=== PATIENT | female | born 1980 | race Caucasian/White ===

== ENCOUNTER 2018-06-03 19:43 | Emergency (ER) | payer BC ==
[2018-06-03] MEDS ORDERED: Tetracaine 0.5% OPTH.SOL 4 ML* 1 DROP BTL SCH (20:00)
[2018-06-03] MEDS ORDERED: Fluorescein Sod TOPICAL 0.6* 0.6 MG TEST OPHTHALMIC ONE (20:00)
[2018-06-03 20:03] VITALS: BP 121/79
--- NOTE | 2018-06-03 20:07 | UC ---
Eye Complaint HPI - HPI Summary HPI Summary: This patient is a 37 year old F presenting to [facility] with a chief complaint of constant right eye pain for the past 24 hours. Pain described as "a needle". She states she was moving branches/brush yesterday at onset of pain. She states pain is at the center of the eye. Pain is 510 in severity upon triage. Denies redness or visual changes. - History of Current Complaint Stated Complaint: EYE PAIN Time Seen by Provider: 06/03/18 19:55 Hx Obtained From: Patient Hx Last Menstrual Period: 1 WEEK AGO Onset/Duration: Lasting Days Timing: Constant Severity Initially: Moderate Severity Currently: Moderate Pain Intensity: 5 Pain Scale Used: 0-10 Numeric Location of Injury: Conjunctiva, Other Character: Sharp Associated Signs And Symptoms: Positive: Negative - Allergies/Home Medications Allergies/Adverse Reactions: Allergies Allergy/AdvReac Type Severity Reaction Status Date / Time SEASONAL Allergy Congestion Uncoded 11/19/16 20:14 Home Medications: Home Medications Fluticasone Propionate [Flonase Allergy Relief] 06/03/18 [History] PMH/Surg Hx/FS Hx/Imm Hx Previously Healthy: Yes - Surgical History Surgical History: Yes Surgery Procedure, Year, and Place: laparoscopy, lapendectomy, lumpectomy left breast, 2x D&C - Family History Known Family History: Positive: Hypertension - Social History Alcohol Use: Occasionally Substance Use Type: None Smoking Status (MU): Former Smoker Type: Cigarettes Length of Time of Smoking/Using Tobacco: quit 10 years ago Review of Systems Constitutional: Negative ENT: Other - eye pain without redness All Other Systems Reviewed And Are Negative: Yes Physical Exam - Summary Physical Exam Summary: General: well-appearing, no pain distress Skin: warm, color reflects adequate perfusion, dry Head: normal Eyes: EOMI, MÓNICA Florescence uptake at 7 Oclock on the iris with 2mm linear uptake ENT: normal Neck: supple, nontender Respiratory: CTA, breath sounds present Cardiovascular: RRR Abdomen: soft, nontender Bowel: present Musculoskeletal: normal, strength/ROM intact Neurological: sensory/motor intact, A&O x3 Psychological: affect/mood appropriate Triage Information Reviewed: Yes Vital Signs Reviewed: Yes Eye Complaint Course/Dx - Course Course Of Treatment: RX TOBRAMYCIN DROPS. F/U WITH OPHTHALMOLOGY IF NOT IMPROVED; RECHECK SOONER IF WORSE. - Differential Dx/Diagnosis Provider Diagnoses: RIGHT EYE CORNEAL ABRASION. RIGHT EYE PAIN Discharge - Sign-Out/Discharge Documenting (check all that apply): Patient Departure - Discharge Plan Condition: Stable Disposition: HOME Patient Education Materials: Corneal Abrasion (ED) Referrals: Cynthia Ramsey MD [Primary Care Provider] - Additional Instructions: FOLLOW UP WITH YOUR LAMINATION OPERATOR. IF NOT COMPLETELY IMPROVED. GET RECHECKED FOR ANY WORSENING OF YOUR CONDITION OR QUESTIONS OR CONCERNS. - Billing Disposition and Condition Condition: STABLE Disposition: Home
[2018-06-03] MEDS ORDERED: Tetracaine 0.5% OPTH.SOL 4 ML* 1 DROP BTL ONE (20:11)
[2018-06-03] MEDS ORDERED: Tobramycin 0.3% OPHTH.SOL* 5 ML BOT (regular eye drops) RIGHT EYE ONE (20:26)
== END 2018-06-03 20:47 | disposition home or self-care (01) ==
LOC: UCEAST 19:43
DX: S05.01XA Injury of conjunctiva and corneal abrasion without foreign body, right eye, initial encounter (principal); X58.XXXA Exposure to other specified factors, initial encounter; Y93.H9 Activity, other involving exterior property and land maintenance, building and construction; Y92.9 Unspecified place or not applicable; H57.11 Ocular pain, right eye; Z82.49 Family history of ischemic heart disease and other diseases of the circulatory system; Z87.891 Personal history of nicotine dependence
CPT/HCPCS: 99212; A9270-GY; G0463

== ENCOUNTER 2019-05-19 09:49 | Emergency (ER) | payer BC ==
[2019-05-19] MEDS ORDERED: diPHENhydraMINE IV* 50 MG/ML 1 ml VIAL (BENADRYL) IV ONE (10:33)
[2019-05-19] MEDS ORDERED: Metoclopramide IV* 5 MG/ML 2 ML VIAL IV PRN (10:33)
[2019-05-19] MEDS ORDERED: Ketorolac INJ* 30 MG/ML 1 ML VIAL IV PUSH ONE (10:33)
--- NOTE | 2019-05-19 10:34 | UC ---
Headache HPI - HPI Summary HPI Summary: is a 38-year-old female who presents to the urgent care with chief complaint of having a severe migraine headache. The patient has history migraine headaches. She reports that this headache is similar to her usual migraine headaches. She denies any fever, she denies any neck pain, positive photophobia and fatigue and weakness. She also reports that she's been having a upper respiratory tract infection symptoms for the last couple days. She reports that she has been well controlled with her migraine headaches for the last year and a half and in the last 3 weeks she has had 3 migraine headaches. She denies any chest patients develop palpitations. Patient has no other complaints. - History Of Current Complaint Chief Complaint: UCHeadache Stated Complaint: HEADACHE Time Seen by Provider: 05/19/19 10:20 Hx Obtained From: Patient Hx Last Menstrual Period: 1 WEEK AGO Onset/Duration: Gradual Onset Initially Headache Was: Moderate Currently Pain Is: Severe Pain Intensity: 8 - Allergies/Home Medications Allergies/Adverse Reactions: Allergies Allergy/AdvReac Type Severity Reaction Status Date / Time SEASONAL Allergy Congestion Uncoded 05/19/19 10:03 Home Medications: Home Medications Ibuprofen 800 mg PO 05/19/19 [History] PMH/Surg Hx/FS Hx/Imm Hx Previously Healthy: Yes Neurological History: Migraine - Surgical History Surgical History: Yes Surgery Procedure, Year, and Place: laparoscopy, lapendectomy, lumpectomy left breast, 2x D&C - Family History Known Family History: Positive: Hypertension - Social History Alcohol Use: Weekly Substance Use Type: None Smoking Status (MU): Former Smoker Type: Cigarettes Length of Time of Smoking/Using Tobacco: quit 10 years ago Review of Systems All Other Systems Reviewed And Are Negative: Yes Constitutional: Positive: Negative Skin: Positive: Negative Eyes: Positive: Negative ENT: Positive: Negative Respiratory: Positive: Negative Cardiovascular: Positive: Negative Gastrointestinal: Positive: Negative Genitourinary: Positive: Negative Motor: Positive: Negative Neurovascular: Positive: Negative Musculoskeletal: Positive: Negative Neurological: Positive: Headache Psychological: Positive: Negative Is Patient Immunocompromised?: No Physical Exam - Summary Physical Exam Summary: VITAL SIGNS: Reviewed. GENERAL: Patient is a well developed and nourished female who is lying comfortable in the stretcher. Patient is not in any acute respiratory distress. HEAD AND FACE: No signs of trauma. No ecchymosis, hematomas or skull depressions. No sinus tenderness. EYES: PERRLA, EOMI x 2, No injected conjunctiva, no nystagmus. EARS: Hearing grossly intact. Ear canals and tympanic membranes are within normal limits. MOUTH: Oropharynx within normal limits. NECK: Supple, trachea is midline, no adenopathy, no JVD, no carotid bruit, no c- spine tenderness, neck with full ROM. CHEST: Symmetric, no tenderness at palpation LUNGS: Clear to auscultation bilaterally. No wheezing or crackles. CVS: Regular rate and rhythm, S1 and S2 present, no murmurs or gallops appreciated. ABDOMEN: Soft, non-tender. No signs of distention. No rebound no guarding, and no masses palpated. Bowel sounds are normal. EXTREMITIES: FROM in all major joints, no edema, no cyanosis or clubbing. NEURO: Alert and oriented x 3. No acute neurological deficits. Speech is normal and follows commands. SKIN: Dry and warm Triage Information Reviewed: Yes Appearance: Well-Appearing Vital Signs: Initial Vital Signs Temp 98.1 F 05/19/19 09:58 Pulse 93 05/19/19 09:58 Resp 18 05/19/19 09:58 BP 127/76 05/19/19 09:58 Pulse Ox 100 05/19/19 09:58 Vital Signs Reviewed: Yes Headache Course/Dx - Course Course Of Treatment: Urgent Care course the patient was started with IV fluids, Reglan, Benadryl, and Toradol for the pain. After these medications the patient's symptoms have resolved. She reports that the pain is almost gone. She is feeling much better therefore she will be discharged home with follow-up with primary care physician. Patient is hemodynamically stable alert and oriented 3 - Differential Dx/Diagnosis Provider Diagnosis: Migraine headache Discharge - Sign-Out/Discharge Documenting (check all that apply): Patient Departure All imaging exams completed and their final reports reviewed: No Studies - Discharge Plan Condition: Stable Disposition: HOME Patient Education Materials: Acute Headache (DC) Referrals: Cynthia Ramsey MD [Primary Care Provider] - Additional Instructions: Continue with good hydration, continue with good sleeping habits Follow-up with primary care physician. - Billing Disposition and Condition Condition: STABLE Disposition: Home
[2019-05-19] MEDS: NS 0.9% 1000 ML** 1,000 ML IV ONE ×2 (11:07→12:05)
[2019-05-19] MEDS ORDERED: Metoclopramide IV* 5 MG/ML 2 ML VIAL IV SLOW PU ONE (11:14)
[2019-05-19 12:14] VITALS: BP 126/78
== END 2019-05-19 12:05 | disposition home or self-care (01) ==
LOC: UCEAST 09:49
DX: G43.909 Migraine, unspecified, not intractable, without status migrainosus (principal); Z87.891 Personal history of nicotine dependence
CPT/HCPCS: 96360; 96374; 96376; 99211; G0463; J1200; J1885; J2765